=== PATIENT | male | born 1985 | race Caucasian/White ===

== ENCOUNTER 2017-06-07 09:41 | Inpatient (IN) | payer OTHER ==
[2017-06-07 09:47] VITALS: BMI 26.1
--- NOTE | 2017-06-07 10:12 | ED PDOC ---
HPI: Male Pain Time Seen by Provider: 06/07/17 09:48 Chief Complaint (Nursing): Male Genitourinary Additional Complaint(s): Patient is a 32 y/o M with hx of diverticulitis with admission in 2016 for diverticulitis with abscess, managed conservatively with IV antibiotics, presenting with suprapubic pain and dysuria. He reports that the suprapubic pain is worse with straining and urinating. Denies hesistancy or difficulty urinating. Denies back pain or fever. Denies scrotal swelling or penile discharge. Past Medical History Vital Signs: Last Vital Signs Temp 98 F 06/07/17 09:45 Pulse 93 H 06/07/17 09:45 Resp BP 148/74 06/07/17 09:45 Pulse Ox 99 06/07/17 09:45 - Medical History PMH: Asthma Denies: HIV, Chronic Kidney Disease - Family History Family History: States: No Known Family Hx - Home Medications Home Medications: Ambulatory Orders Medication Instructions Recorded No Known Home Med 06/07/17 - Allergies Allergies/Adverse Reactions: Allergies Allergy/AdvReac Type Severity Reaction Status Date / Time No Known Allergies Allergy Verified 08/27/14 17:38 Review of Systems Constitutional: Negative for: Fever, Chills Respiratory: Negative for: Cough, Shortness of Breath Gastrointestinal: Positive for: Abdominal Pain (suprapubic). Negative for: Nausea, Vomiting, Diarrhea, Constipation Genitourinary Male: Positive for: Dysuria. Negative for: Frequency, Incontinence, Hematuria, Penile Discharge, Scrotal Pain, Penile Pain Musculoskeletal: Negative for: Neck Pain Neurological: Negative for: Weakness, Numbness Physical Exam - Reviewed Nursing Documentation Reviewed: Yes Vital Signs Reviewed: Yes - Physical Exam Appears: Positive for: Well, Non-toxic Cardiovascular/Chest: Positive for: Regular Rate, Rhythm Respiratory: Positive for: Normal Breath Sounds Gastrointestinal/Abdominal: Positive for: Soft, Tenderness (scant suprapubic). Negative for: Mass, Distended Male Genital Exam: Negative for: inguinal tenderness, scrotum tenderness (R), scrotum tenderness (L), testicular tenderness (R), testicular tenderness (L), urethral discharge Back: Positive for: Normal Inspection. Negative for: L CVA Tenderness, R CVA Tenderness Extremity: Positive for: Normal ROM - Laboratory Results Result Diagrams: 06/07/17 10:46 06/07/17 10:46 - ECG O2 Sat by Pulse Oximetry: 99 Medical Decision Making Medical Decision Making: UA negative for blood or infection. CT ordered to evaluate abdominal pain further. 12:09 Abd/pelvis CT FINDINGS: LOWER THORAX: Trace bilateral basilar dependent atelectasis identified with a small hiatal hernia also noted. LIVER: Diminished attenuation is appreciated throughout the liver once again reflecting diffuse fatty infiltration but no discrete interval mass is identified. GALLBLADDER AND BILE DUCTS: Unremarkable. PANCREAS: Unremarkable. No gross lesion or ductal dilatation. SPLEEN: Unremarkable. ADRENALS: Unremarkable. No mass. KIDNEYS AND URETERS: Unremarkable. No hydronephrosis. No solid mass. VASCULATURE: Unremarkable. No aortic aneurysm. BOWEL: Prominent thickening of the mid sigmoid colon is again appreciated in the similar segment previously demonstrated is being inflamed from diverticulitis apparently. Local pericolic reaction appears prominent, particularly in the anti mesenteric border laterally with phlegmon or early fluid collection developing. A definite abscess is not completely excluded but is not ruled in either. No free intrarenal gas identified this time. Distal sigmoid colon appears normal in thickness. A few diverticular again seen at the descending colon once again which are noninflamed with remaining large bowel tim for moderate retained fecal material. No bowel obstruction pattern is evident including small bowel. Small bowel is limited evaluation to lack of oral contrast material. APPENDIX: Normal appendix. PERITONEUM: Unremarkable. No free fluid. No free air. LYMPH NODES: Unremarkable. No enlarged lymph nodes. BLADDER: Unremarkable. REPRODUCTIVE: Unremarkable. BONES: No acute fracture. OTHER FINDINGS: None. IMPRESSION: 1. Findings likely reflect recurrent diverticulitis at the mid sigmoid colon with phlegmon or early abscess developing at the anti mesenteric margin at the affected segment. No free intrarenal gas identified this time. 2. Recurrent or chronic fatty liver again evident. 3. Lesser additional details as discussed above. 12:16 --Spoke to resident under Dr. Juventino Cordoba MD and consult to attending placed --Admit to hospital routine: Inpatient in Med/Surg for diverticulitis with fluid collection under the care of Resident Dr. Ifrah Cohen MD 12:17PM WBC elevated. Patient afebrile. IVF infusing. Zosyn and blood cultures started. Accepted by Monique Cohen hospitalist. Disposition - Clinical Impression Clinical Impression: Diverticulitis of intestine with abscess - Disposition Disposition Time: 12:19 Condition: FAIR Forms: [employer] (Chinese)
[2017-06-07 10:49] LABS: BASO % 0.4 % (0.0-2.0); EOS # 0.2 K/uL (0.0-0.7); EOS % 1.9 % (0.0-4.0); HEMATOCRIT 39.3 % (35.0-51.0); LYMPH # 1.7 K/uL (1.0-4.3); LYMPH % 15.5 % (20.0-40.0); MEAN CELL VOLUME 85.9 fl (80.0-94.0); MEAN CORPUSCULAR HEMOGLOBIN 29.4 pg (27.0-31.0); MEAN CORPUSCULAR HGB CONC 34.2 g/dL (33.0-37.0); MONO # 1.1 K/uL (0.0-0.8); MONO % 9.7 % (0.0-10.0); NEUT % 72.5 % (50.0-75.0); WHITE BLOOD COUNT 11.1 K/uL (4.8-10.8)
[2017-06-07 10:51] LABS: URINE BILIRUBIN NEGATIVE (NEGATIVE); URINE BLOOD NEGATIVE (NEGATIVE); URINE COLOR YELLOW (YELLOW); URINE GLUCOSE (UA) NEG (Normal); URINE KETONE NEGATIVE (NEGATIVE); URINE LEUKOCYTE ESTERASE NEG Leu/uL (Negative); URINE PROTEIN 30 mg/dL (NEGATIVE); URINE UROBILINOGEN 0.2-1.0 mg/dL (0.2-1.0); WBC URINE 1 /hpf (0-5)
[2017-06-07 11:05] LABS: ALB/GLOB RATIO 1.2 (1.0-2.1); ALKALINE PHOSPHATASE 75 U/L (38-126); ALT/SGPT 84 U/L (21-72); AST/SGOT 47 U/L (17-59); BILIRUBIN,TOTAL 0.6 mg/dl (0.2-1.3); BLOOD UREA NITROGEN 9 mg/dl (9-20); CALCIUM 9.2 mg/dL (8.4-10.2); CARBON DIOXIDE 24 mmol/L (22-30); CHLORIDE 105 mmol/L (98-107); GFR AFRICAN-AMERICAN > 60; GLUCOSE,RANDOM 111 mg/dL (75-110); POTASSIUM 3.9 MMOL/L (3.6-5.0); SODIUM 140 mmol/l (132-148); TOTAL PROTEIN 7.9 G/DL (6.3-8.2)
[2017-06-07] MEDS ORDERED: Iohexol 300 100 ML IJ ONE (11:10)
[2017-06-07] MEDS ORDERED: Sodium Chloride 0.9% 50 ML IV ONE (11:11)
[2017-06-07] MEDS ORDERED: metroNIDAZOLE 500mg/100ml NS 100 ML IVPB STA (12:11)
[2017-06-07] MEDS ORDERED: Ciprofloxacin 400mg/200ml D5W 400 MG/200 ML BAG IVPB STA (12:11)
--- NOTE | 2017-06-07 12:11 | CT ---
PROCEDURE: CT Abdomen and Pelvis with contrast HISTORY: suprapubic pain COMPARISON: None. TECHNIQUE: Contrast dose: Omnipaque 300, 100 cc. No oral contrast administered as requested. Radiation dose: Total exam DLP = 607 mGy-cm. This CT exam was performed using one or more of the following dose reduction techniques: Automated exposure control, adjustment of the mA and/or kV according to patient size, and/or use of iterative reconstruction technique. FINDINGS: LOWER THORAX: Trace bilateral basilar dependent atelectasis identified with a small hiatal hernia also noted. LIVER: Diminished attenuation is appreciated throughout the liver once again reflecting diffuse fatty infiltration but no discrete interval mass is identified. GALLBLADDER AND BILE DUCTS: Unremarkable. PANCREAS: Unremarkable. No gross lesion or ductal dilatation. SPLEEN: Unremarkable. ADRENALS: Unremarkable. No mass. KIDNEYS AND URETERS: Unremarkable. No hydronephrosis. No solid mass. VASCULATURE: Unremarkable. No aortic aneurysm. BOWEL: Prominent thickening of the mid sigmoid colon is again appreciated in the similar segment previously demonstrated is being inflamed from diverticulitis apparently. Local pericolic reaction appears prominent, particularly in the anti mesenteric border laterally with phlegmon or early fluid collection developing. A definite abscess is not completely excluded but is not ruled in either. No free intrarenal gas identified this time. Distal sigmoid colon appears normal in thickness. A few diverticular again seen at the descending colon once again which are noninflamed with remaining large bowel tim for moderate retained fecal material. No bowel obstruction pattern is evident including small bowel. Small bowel is limited evaluation to lack of oral contrast material. APPENDIX: Normal appendix. PERITONEUM: Unremarkable. No free fluid. No free air. LYMPH NODES: Unremarkable. No enlarged lymph nodes. BLADDER: Unremarkable. REPRODUCTIVE: Unremarkable. BONES: No acute fracture. OTHER FINDINGS: None. IMPRESSION: 1. Findings likely reflect recurrent diverticulitis at the mid sigmoid colon with phlegmon or early abscess developing at the anti mesenteric margin at the affected segment. No free intrarenal gas identified this time. 2. Recurrent or chronic fatty liver again evident. 3. Lesser additional details as discussed above.
[2017-06-07] MEDS ORDERED: Piperacillin/Tazobact 3.375 GM in Sodium Chloride 0.9% 100 ML IVPB STA (12:17)
[2017-06-07] MEDS ORDERED: Piperacillin/Tazobact 3.375 gm Inj IVPB ONE (12:18)
[2017-06-07] MEDS ORDERED: Sodium Chloride 0.9% 1,000 ML IV SCH (12:30)
--- NOTE | 2017-06-07 13:02 | CP.PCM.CON ---
<Gasper Johnson - Last Filed: 06/07/17 12:56> History of Present Illness - History of Present Illness History of Present Illness: Surgery: Dr. Cordoba CC: Abd pain HPI: 32M w. PMH of diverticulitis in March of 2016 which resolved w. conservative management. Pt did not have follow up colonoscopy. Pt presents to ED w. abd pain which began Wednesday night. Pain is localized to the LLQ and is described as a sharp pulling pain. Pain progressively worsened and is now constant. Tylenol provides slight relief. Pain is exacerbated w. activity and urination. Pt states that the pain is similar to prior episode of diverticulitis. Pt states that he had a low grade fever 100.4 the last 2 days. He denies chills. No SPEARS/blurred vision, no CP/palpitations, no SOB/cough. Pt denies N/V. He did have loose stools yesterday, non-bloody. Pt does report dysuria, his urine is darker than usual, no foul odor, no hematuria. PMH: diverticulosis PSH: none Meds: none NKDA Social: Social ETOH, occasional cigarette, no drugs Fhx: non-contributory Review of Systems - Review of Systems All systems: reviewed and no additional remarkable complaints except (HPI) Past Patient History - Past Medical History & Family History Past Medical History?: Yes - Past Social History Smoking Status: Never Smoked - CARDIAC Hx Cardiac Disorders: No - PULMONARY Hx Respiratory Disorders: No - NEUROLOGICAL Hx Neurological Disorder: No - HEENT Hx HEENT Problems: No - RENAL Hx Chronic Kidney Disease: No - ENDOCRINE/METABOLIC Hx Endocrine Disorders: No - HEMATOLOGICAL/ONCOLOGICAL Hx Blood Disorders: No - INTEGUMENTARY Hx Dermatological Problems: No - MUSCULOSKELETAL/RHEUMATOLOGICAL Hx Musculoskeletal Disorders: No - GASTROINTESTINAL Hx Gastrointestinal Disorders: No - GENITOURINARY/GYNECOLOGICAL Hx Genitourinary Disorders: No - PSYCHIATRIC Hx Psychophysiologic Disorder: No - SURGICAL HISTORY Hx Surgeries: No - ANESTHESIA Hx Anesthesia: No Meds Allergies/Adverse Reactions: Allergies Allergy/AdvReac Type Severity Reaction Status Date / Time No Known Allergies Allergy Verified 08/27/14 17:38 - Medications Medications: Current Medications Hydromorphone HCl (Dilaudid) 0.5 mg IVP Q4 PRN PRN Reason: Pain, severe (8-10) Piperacillin Sod/Tazobactam (Sod 3.375 gm/ Sodium Chloride) 100 mls @ 100 mls/ hr IVPB STAT STA Stop: 06/07/17 13:16 Last Admin: 06/07/17 12:25 Dose: 100 mls/hr Sodium Chloride (Sodium Chloride 0.9%) 1,000 mls @ 100 mls/hr IV .Q10H [facility] Stop: 06/08/17 12:30 Last Admin: 06/07/17 12:33 Dose: 100 mls/hr Ondansetron HCl (Zofran Inj) 4 mg IVP Q4 PRN PRN Reason: Nausea/Vomiting Physical Exam - Constitutional Appears: Non-toxic, No Acute Distress - Head Exam Head Exam: ATRAUMATIC, NORMOCEPHALIC - Eye Exam Eye Exam: EOMI. absent: Scleral icterus Pupil Exam: NORMAL ACCOMODATION - ENT Exam ENT Exam: Mucous Membranes Moist, Normal External Ear Exam - Neck Exam Neck exam: Positive for: Full Rom - Respiratory Exam Respiratory Exam: NORMAL BREATHING PATTERN. absent: Accessory Muscle Use, Respiratory Distress - Cardiovascular Exam Cardiovascular Exam: REGULAR RHYTHM - GI/Abdominal Exam GI & Abdominal Exam: Soft, Tenderness (LLQ). absent: Distended, Firm, Guarding , Rebound, Rigid - Extremities Exam Extremities exam: Negative for: calf tenderness, pedal edema - Back Exam Back exam: absent: CVA tenderness (L), CVA tenderness (R) - Neurological Exam Neurological exam: Alert, Oriented x3 - Psychiatric Exam Psychiatric exam: Normal Affect, Normal Mood - Skin Skin Exam: Dry, Normal Color, Warm Results - Vital Signs Recent Vital Signs: Last Vital Signs Temp 98 F 06/07/17 12:44 Pulse 93 H 06/07/17 12:44 Resp BP 148/74 06/07/17 12:44 Pulse Ox 99 06/07/17 12:43 - Labs Result Diagrams: 06/07/17 10:46 06/07/17 10:46 - Imaging and Cardiology CT scan - abdomen Status: Image reviewed by me, Report reviewed by me Assessment & Plan - Assessment and Plan (Free Text) Assessment: 32M w. diverticulitis -NPO -IVF -abx -serial abd exams -will need future colonoscopy -will d.w attending Leeannaitis PGY3 <Juventino Cordoba B - Last Filed: 06/13/17 18:55> Results - Vital Signs Recent Vital Signs: Last Vital Signs Temp 98.1 F 06/10/17 07:24 Pulse 73 06/10/17 07:24 Resp 20 06/10/17 07:24 BP 106/65 06/10/17 07:24 Pulse Ox 99 06/10/17 07:24 - Labs Result Diagrams: 06/10/17 05:05 06/10/17 05:05 Attending/Attestation - Attestation I have personally seen and examined this patient.: Yes I have fully participated in the care of the patient.: Yes I have reviewed all pertinent clinical information: Yes Notes (Text): 06/13/17 18:54 Pt was seen and examined at bedside Agree with above note and assessment Pt with Diverticulitis with abdominal pain LLQ tenderness C/w current mx IV antibiotics Plan d.w pt in detail Risk and benefit explained in detail.
[2017-06-07] MEDS: Sodium Chloride 0.9% 1,000 ML IV SCH ×2 (13:15→23:34)
--- NOTE | 2017-06-07 14:26 | CP.PCM.HP ---
History of Present Illness - History of Present Illness History of Present Illness: Chief complaint: Abdominal pain History of present illness: 32-year-old male with prior admission for diverticulitis approximately one year ago treated with conservative management but without colonoscopy presents after 2 day history of moderate to severe cramping sharp pain in the left lower quadrant initially worsening and now feeling mildly improved. No diarrhea, hematochezia, n/v. In the emergency room patient was found to have a white blood cell count of 11.[address] abdomen and pelvis showed recurrent diverticulitis admitted sigmoid colon with phlegmon or early abscess developing at the antimesenteric margin. Patient vitals he is afebrile 98.1 heart rate of 76 blood pressure 124/82 respiratory rate of 18 and he saturating 100% on room air. Patient was seen by surgery team consultation to Dr. Cordoba. Review of systems per HPI all other systems reviewed and negative by me Past medical history diverticulitis with prior admission with conservative management without colonoscopy Past surgical history none Family history denies Social history just about 2-3 beers after work daily, no tobacco use, no recreational or IV drug use No home medications No known drug allergies Vitals as reviewed 98.1 heart rate 76 blood pressure 124/82 history rate 1800% saturation on room air Vital signs as documented. Gen: WDWN, cooperative, alert HEENT: NCAT, PERRL, EOMI, no erythema, exudates, gross hearing intact, no lesions Neck: Soft, supple, no lymphadenopathy, no JVD Heart: +S1S2, RRR, No MRG Lung: CTAB, No WRR Abd: soft, tenderness left lower quadrant, ND, BSx4, no HSM, no masses Ext: warm, well perfused, pedal pulses intact Neuro: AAOx3, Strength equal bilaterally UE/LE Skin: Warm, Dry, no rash Psych: Normal mood, affect with appropriate range Significant laboratory results and as below WBC 11.1 Platelet 125 Negative urinalysis 06/07/17 10:46 06/07/17 10:[address] abdomen and pelvis showing diverticulitis admitted sigmoid colon Assessment and plan 32-year-old male with prior admission for diverticulitis approximately one year ago treated with conservative management but without colonoscopy presents after 2 day history of moderate to severe cramping sharp pain in the left lower quadrant initially worsening and now feeling mildly improved. No diarrhea, hematochezia, n/v. In the emergency room patient was found to have a white blood cell count of 11.[address] abdomen and pelvis showed recurrent diverticulitis admitted sigmoid colon with phlegmon or early abscess developing at the antimesenteric margin. Patient vitals he is afebrile 98.1 heart rate of 76 blood pressure 124/82 respiratory rate of 18 and he saturating 100% on room air. Patient was seen by surgery team consultation to Dr. Cordoba. Diverticulitis Patient initially presented with left lower quadrant pain for 2 days worsening, CT + diverticulitis Afebrile, WBC 11.1 Continue Zosyn IV day 1 NPO Blood and urine cultures pending Pain control Gen. surgery consult with Dr. Cordoba If no surgery planned consider discharging patient on by mouth meds VTE PPx TEDs Present on Admission - Present on Admission Any Indicators Present on Admission: No Past Patient History - Past Medical History & Family History Past Medical History?: Yes - Past Social History Smoking Status: Never Smoked - CARDIAC Hx Cardiac Disorders: No - PULMONARY Hx Respiratory Disorders: No - NEUROLOGICAL Hx Neurological Disorder: No - HEENT Hx HEENT Problems: No - RENAL Hx Chronic Kidney Disease: No - ENDOCRINE/METABOLIC Hx Endocrine Disorders: No - HEMATOLOGICAL/ONCOLOGICAL Hx Blood Disorders: No - INTEGUMENTARY Hx Dermatological Problems: No - MUSCULOSKELETAL/RHEUMATOLOGICAL Hx Musculoskeletal Disorders: No - GASTROINTESTINAL Hx Gastrointestinal Disorders: No - GENITOURINARY/GYNECOLOGICAL Hx Genitourinary Disorders: No - PSYCHIATRIC Hx Psychophysiologic Disorder: No - SURGICAL HISTORY Hx Surgeries: No - ANESTHESIA Hx Anesthesia: No Meds Allergies/Adverse Reactions: Allergies Allergy/AdvReac Type Severity Reaction Status Date / Time No Known Allergies Allergy Verified 08/27/14 17:38 Results - Vital Signs Recent Vital Signs: Last Vital Signs Temp 98.1 F 06/07/17 13:30 Pulse 76 06/07/17 13:30 Resp 18 06/07/17 13:30 BP 124/82 06/07/17 13:30 Pulse Ox 98 06/07/17 13:30 - Labs Result Diagrams: 06/07/17 10:46 06/07/17 10:46
[2017-06-07] MEDS: Piperacillin/Tazobact 3.375 GM in Sodium Chloride 0.9% 100 ML IVPB SCH ×2 (16:48→21:24)
[2017-06-08] MEDS: Piperacillin/Tazobact 3.375 GM in Sodium Chloride 0.9% 100 ML IVPB SCH ×4 (03:49→22:46)
[2017-06-08] MEDS: Sodium Chloride 0.9% 1,000 ML IV SCH (06:38)
[2017-06-08 07:27] LABS: HEMATOCRIT 39.4 % (35.0-51.0); MEAN CELL VOLUME 87.2 fl (80.0-94.0); MEAN CORPUSCULAR HEMOGLOBIN 29.8 pg (27.0-31.0); MEAN CORPUSCULAR HGB CONC 34.1 g/dL (33.0-37.0); RED CELL DISTRIBUTION WIDTH 13.2 % (11.5-14.5); WHITE BLOOD COUNT 10.8 K/uL (4.8-10.8)
[2017-06-08 07:41] LABS: BLOOD UREA NITROGEN 8 mg/dl (9-20); CALCIUM 9.1 mg/dL (8.4-10.2); CARBON DIOXIDE 27 mmol/L (22-30); CHLORIDE 103 mmol/L (98-107); GFR AFRICAN-AMERICAN > 60; GLUCOSE,RANDOM 99 mg/dL (75-110); POTASSIUM 4.1 MMOL/L (3.6-5.0); SODIUM 142 mmol/l (132-148)
--- NOTE | 2017-06-08 08:11 | CP.PCM.PN ---
<Jose RneelGasper melgar - Last Filed: 06/09/17 06:34> Subjective - Date & Time of Evaluation Date of Evaluation: 06/08/17 Time of Evaluation: 08:07 - Subjective Subjective: Surgery: Dr. Cordoba Pt seen and examined. Resting comfortably in bed. Pt states that after FLD last night, pain got slightly worse. Pain is improved now. No F/C. No N/V. Pt had BM last night, normal, non-bloody. Objective - Vital Signs/Intake and Output Vital Signs (last 24 hours): Temp Pulse Resp BP Pulse Ox 98.8 F 80 20 109/66 98 06/08/17 07:55 06/08/17 07:55 06/08/17 07:55 06/08/17 07:55 06/08/17 07:55 - Medications Medications: Current Medications Acetaminophen (Tylenol 325mg Tab) 650 mg PO Q6 PRN PRN Reason: Fever >100.4 F Enoxaparin Sodium (Lovenox) 30 mg SC DAILY [facility] PRN Reason: Protocol Famotidine (Pepcid) 20 mg IVP Q12 [facility] Last Admin: 06/07/17 20:24 Dose: 20 mg Hydromorphone HCl (Dilaudid) 0.5 mg IVP Q4 PRN PRN Reason: Pain, severe (8-10) Last Admin: 06/08/17 06:37 Dose: 0.5 mg Piperacillin Sod/Tazobactam (Sod 3.375 gm/ Sodium Chloride) 100 mls @ 100 mls/ hr IVPB Q6 [facility] Last Admin: 06/08/17 03:49 Dose: 100 mls/hr Sodium Chloride (Sodium Chloride 0.9%) 1,000 mls @ 115 mls/hr IV .Q8H42M [facility] Stop: 06/08/17 12:30 Last Admin: 06/08/17 06:38 Dose: Not Given Ketorolac Tromethamine (Toradol) 30 mg IVP Q6 PRN PRN Reason: Pain, moderate (4-7) Last Admin: 06/07/17 20:22 Dose: 30 mg Ondansetron HCl (Zofran Inj) 4 mg IVP Q4 PRN PRN Reason: Nausea/Vomiting - Labs Labs: 06/08/17 06:30 06/08/17 06:30 - Constitutional Appears: Non-toxic, No Acute Distress - Head Exam Head Exam: ATRAUMATIC, NORMOCEPHALIC - Eye Exam Eye Exam: EOMI - ENT Exam ENT Exam: Mucous Membranes Moist - Neck Exam Neck Exam: Full ROM - Respiratory Exam Respiratory Exam: NORMAL BREATHING PATTERN. absent: Accessory Muscle Use, Respiratory Distress - GI/Abdominal Exam GI & Abdominal Exam: Soft, Tenderness (LLQ), Rebound (mild LLQ). absent: Distended, Firm, Guarding, Rigid - Extremities Exam Extremities Exam: absent: Calf Tenderness, Pedal Edema - Neurological Exam Neurological Exam: Alert, Awake, Oriented x3 - Psychiatric Exam Psychiatric exam: Normal Affect, Normal Mood - Skin Skin Exam: Dry, Normal Color, Warm Assessment and Plan - Assessment and Plan (Free Text) Assessment: 32M w. sigmoid diverticulitis -c/w FLD, if pain worsens, recommend NPO and keep extra day for IV abx, if diet tolerated recommend D/C w. PO abx -serial abd exams -will d/w attending Zemaitis PGY3 <Juventino Cordoba - Last Filed: 06/13/17 19:05> Objective - Vital Signs/Intake and Output Vital Signs (last 24 hours): Temp Pulse Resp BP Pulse Ox 98.1 F 73 20 106/65 99 06/10/17 07:24 06/10/17 07:24 06/10/17 07:24 06/10/17 07:24 06/10/17 07:24 - Labs Labs: 06/10/17 05:05 06/10/17 05:05 Attending/Attestation - Attestation I have personally seen and examined this patient.: Yes I have fully participated in the care of the patient.: Yes I have reviewed all pertinent clinical information, including history, physical exam and plan: Yes Notes (Text): 06/13/17 19:05 Pt was seen and examined at bedside Agree with above note and assessment Pt is improving clinically C/w IV antibiotics Plan d.w pt in detail Risk and benefit explained in detail.
[2017-06-08] MEDS: Enoxaparin 40 mg Syringe SC SCH (12:36)
--- NOTE | 2017-06-08 16:06 | CP.PCM.PN ---
Subjective - Date & Time of Evaluation Date of Evaluation: 06/08/17 Time of Evaluation: 10:30 - Subjective Subjective: Patient seen and examined bedside. Complains of pain to LLQ just above to suprapubic area radiating to left testis. Hemodynamically stable, Tmax 99.8 last 24 hours WBC trended down to 10 K. Passing flatus, had normal bowel movements, tolerated liquid diet. pain controlled with toradol Objective - Vital Signs/Intake and Output Vital Signs (last 24 hours): Temp Pulse Resp BP Pulse Ox 98.8 F 80 20 109/66 98 06/08/17 09:00 06/08/17 09:00 06/08/17 09:00 06/08/17 09:00 06/08/17 09:00 - Medications Medications: Current Medications Acetaminophen (Tylenol 325mg Tab) 650 mg PO Q6 PRN PRN Reason: Fever >100.4 F Enoxaparin Sodium (Lovenox) 40 mg SC DAILY [facility] PRN Reason: Protocol Last Admin: 06/08/17 12:36 Dose: 40 mg Famotidine (Pepcid) 20 mg IVP Q12 [facility] Last Admin: 06/08/17 09:10 Dose: 20 mg Hydromorphone HCl (Dilaudid) 0.5 mg IVP Q4 PRN PRN Reason: Pain, severe (8-10) Last Admin: 06/08/17 10:49 Dose: 0.5 mg Piperacillin Sod/Tazobactam (Sod 3.375 gm/ Sodium Chloride) 100 mls @ 100 mls/ hr IVPB Q6 [facility] Last Admin: 06/08/17 09:10 Dose: 100 mls/hr Ketorolac Tromethamine (Toradol) 30 mg IVP Q6 PRN PRN Reason: Pain, moderate (4-7) Last Admin: 06/07/17 20:22 Dose: 30 mg Ondansetron HCl (Zofran Inj) 4 mg IVP Q4 PRN PRN Reason: Nausea/Vomiting - Labs Labs: 06/08/17 06:30 06/08/17 06:30 - Constitutional Appears: Non-toxic, No Acute Distress - Head Exam Head Exam: ATRAUMATIC, NORMAL INSPECTION, NORMOCEPHALIC - Eye Exam Eye Exam: EOMI, Normal appearance, PERRL Pupil Exam: NORMAL ACCOMODATION - ENT Exam ENT Exam: Mucous Membranes Moist, Normal Exam - Neck Exam Neck Exam: Full ROM, Normal Inspection - Respiratory Exam Respiratory Exam: Clear to Ausculation Bilateral, NORMAL BREATHING PATTERN. absent: Rales, Rhonchi, Wheezes - Cardiovascular Exam Cardiovascular Exam: REGULAR RHYTHM, RRR, +S1, +S2. absent: JVD - GI/Abdominal Exam GI & Abdominal Exam: Soft, Tenderness (left lower quadrant above suprapubic area with palpation ), Normal Bowel Sounds. absent: Distended, Guarding, Hernia , Mass, Rebound - Rectal Exam Rectal Exam: Deferred - Extremities Exam Extremities Exam: Full ROM, Normal Capillary Refill, Normal Inspection. absent : Calf Tenderness, Pedal Edema - Back Exam Back Exam: NORMAL INSPECTION - Neurological Exam Neurological Exam: Alert, Awake, CN II-XII Intact, Oriented x3 - Psychiatric Exam Psychiatric exam: Normal Affect, Normal Mood - Skin Skin Exam: Dry, Intact, Normal Color, Warm Assessment and Plan - Assessment and Plan (Free Text) Assessment: 32-year-old male with prior admission for diverticulitis approximately one year ago treated with conservatively with Flagyl and Cipro presented after 2 day history of moderate to severe cramping sharp pain in the left lower quadrant initially worsening and now feeling mildly improved. No diarrhea, hematochezia, n/v. In the emergency room patient was found to have a white blood cell count of 11.[address] abdomen and pelvis showed recurrent diverticulitis mid sigmoid colon with phlegmon or early abscess developing at the antimesenteric margin. Patient vitals he is afebrile , heart rate of 76 blood pressure 124/82 respiratory rate of 18 and he saturating 100% on room air. Patient was seen by surgery team consultation to Dr. Cordoba. 1.Diverticulitis Patient initially presented with left lower quadrant pain for [address] showed + diverticulitis Afebrile, WBC 10 K Continue Zosyn IV day 2 and start Flagyl IV Continue low fiber / full liquid diet' Pain control Gen. surgery consult with Dr. Cordoba appreciated and case discussed 2. DVt prophylaxis SCD
[2017-06-08] MEDS: metroNIDAZOLE 500mg/100ml NS 100 ML IVPB SCH (18:20)
[2017-06-09] MEDS: metroNIDAZOLE 500mg/100ml NS 100 ML IVPB SCH (01:10)
[2017-06-09] MEDS: Piperacillin/Tazobact 3.375 GM in Sodium Chloride 0.9% 100 ML IVPB SCH ×4 (04:15→21:53)
[2017-06-09] MEDS ORDERED: Oxycodone/Acetaminophen 5/325 mg Tab PO PRN (07:31)
--- NOTE | 2017-06-09 07:35 | CP.PCM.PN ---
<Gasper Johnson - Last Filed: 06/09/17 07:33> Subjective - Date & Time of Evaluation Date of Evaluation: 06/09/17 Time of Evaluation: 07:33 - Subjective Subjective: Surgery: Dr. Cordoba Pt seen and examined. Yesterday diet was advanced to regular. Pt states that this caused an exacerbation in pain. Diet was changed back to FLD. This AM pt states that pain persists, but is improved. Denies F/C. No N/V. Pt states that he did have diarrhea overnight, non-bloody. Objective - Vital Signs/Intake and Output Vital Signs (last 24 hours): Temp Pulse Resp BP Pulse Ox 98.8 F 81 20 104/63 98 06/09/17 00:39 06/09/17 00:39 06/09/17 00:39 06/09/17 00:39 06/09/17 00:39 - Medications Medications: Current Medications Acetaminophen (Tylenol 325mg Tab) 650 mg PO Q6 PRN PRN Reason: Fever >100.4 F Enoxaparin Sodium (Lovenox) 40 mg SC DAILY [facility] PRN Reason: Protocol Last Admin: 06/08/17 12:36 Dose: 40 mg Famotidine (Pepcid) 20 mg IVP Q12 [facility] Last Admin: 06/08/17 23:20 Dose: 20 mg Piperacillin Sod/Tazobactam (Sod 3.375 gm/ Sodium Chloride) 100 mls @ 100 mls/ hr IVPB Q6 [facility] Last Admin: 06/09/17 04:15 Dose: 100 mls/hr Ketorolac Tromethamine (Toradol) 30 mg IVP Q6 PRN PRN Reason: Pain, moderate (4-7) Last Admin: 06/09/17 06:51 Dose: 30 mg Ondansetron HCl (Zofran Inj) 4 mg IVP Q4 PRN PRN Reason: Nausea/Vomiting Oxycodone/Acetaminophen (Percocet 5/325 Mg Tab) 1 tab PO Q4 PRN PRN Reason: Pain, moderate (4-7) Stop: 06/12/17 07:32 - Labs Labs: 06/08/17 06:30 06/08/17 06:30 - Constitutional Appears: Non-toxic, No Acute Distress - Head Exam Head Exam: ATRAUMATIC, NORMOCEPHALIC - Eye Exam Eye Exam: EOMI. absent: Scleral icterus Pupil Exam: PERRL - ENT Exam ENT Exam: Mucous Membranes Moist - Neck Exam Neck Exam: Full ROM - Respiratory Exam Respiratory Exam: NORMAL BREATHING PATTERN. absent: Accessory Muscle Use, Respiratory Distress - GI/Abdominal Exam GI & Abdominal Exam: Soft, Tenderness (LLQ). absent: Distended, Firm, Guarding , Rigid, Rebound - Extremities Exam Extremities Exam: absent: Calf Tenderness, Pedal Edema - Neurological Exam Neurological Exam: Alert, Awake, Oriented x3 - Psychiatric Exam Psychiatric exam: Normal Affect, Normal Mood - Skin Skin Exam: Dry, Normal Color, Warm Assessment and Plan - Assessment and Plan (Free Text) Assessment: 32M w. diverticulitis -FLD, do not advance diet yet -c/w abx -pain control -f/u AM labs -serial abd exams -d/w attending Zemaitis PGY3 <Juventino Cordoba - Last Filed: 06/13/17 19:07> Objective - Vital Signs/Intake and Output Vital Signs (last 24 hours): Temp Pulse Resp BP Pulse Ox 98.1 F 73 20 106/65 99 06/10/17 07:24 06/10/17 07:24 06/10/17 07:24 06/10/17 07:24 06/10/17 07:24 - Labs Labs: 06/10/17 05:05 06/10/17 05:05 Attending/Attestation - Attestation I have personally seen and examined this patient.: Yes I have fully participated in the care of the patient.: Yes I have reviewed all pertinent clinical information, including history, physical exam and plan: Yes Notes (Text): 06/13/17 19:07 Pt was seen and examined at bedside Agree with above note and assessment DC Home with Po antibiotics F.U as out pt
[2017-06-09 07:56] LABS: HEMATOCRIT 36.6 % (35.0-51.0); MEAN CELL VOLUME 86.4 fl (80.0-94.0); MEAN CORPUSCULAR HEMOGLOBIN 29.3 pg (27.0-31.0); MEAN CORPUSCULAR HGB CONC 33.9 g/dL (33.0-37.0); RED CELL DISTRIBUTION WIDTH 12.7 % (11.5-14.5); WHITE BLOOD COUNT 12.7 K/uL (4.8-10.8)
[2017-06-09 08:17] LABS: BLOOD UREA NITROGEN 9 mg/dl (9-20); CALCIUM 9.1 mg/dL (8.4-10.2); CARBON DIOXIDE 26 mmol/L (22-30); CHLORIDE 101 mmol/L (98-107); GFR AFRICAN-AMERICAN > 60; GLUCOSE,RANDOM 105 mg/dL (75-110); POTASSIUM 3.6 MMOL/L (3.6-5.0); SODIUM 140 mmol/l (132-148)
[2017-06-09] MEDS: Enoxaparin 40 mg Syringe SC SCH (08:28)
[2017-06-09] MEDS: Sodium Chloride 0.9% 1,000 ML IV SCH ×3 (09:16→21:51)
--- NOTE | 2017-06-09 10:54 | CP.PCM.PN ---
Subjective - Date & Time of Evaluation Date of Evaluation: 06/09/17 Time of Evaluation: 11:00 - Subjective Subjective: Patient seen and examined bedside. Lying in bed in NAD.States that yesterday had episode of abdominal cramps associated with multiple episodes of diarrhea after eating and with 2 episodes of diarrhea this AM. Feeling better . Hemodynamically stable, Tmax 99.8 , tolerating liquid diet WBC trending up today 12.7 Objective - Vital Signs/Intake and Output Vital Signs (last 24 hours): Temp Pulse Resp BP Pulse Ox 98.4 F 99 H 20 119/72 95 06/09/17 08:33 06/09/17 08:33 06/09/17 08:33 06/09/17 08:33 06/09/17 08:33 - Medications Medications: Current Medications Acetaminophen (Tylenol 325mg Tab) 650 mg PO Q6 PRN PRN Reason: Fever >100.4 F Enoxaparin Sodium (Lovenox) 40 mg SC DAILY [facility] PRN Reason: Protocol Last Admin: 06/09/17 08:28 Dose: 40 mg Famotidine (Pepcid) 20 mg IVP Q12 [facility] Last Admin: 06/09/17 08:29 Dose: 20 mg Piperacillin Sod/Tazobactam (Sod 3.375 gm/ Sodium Chloride) 100 mls @ 100 mls/ hr IVPB Q6 [facility] Last Admin: 06/09/17 09:17 Dose: 100 mls/hr Sodium Chloride (Sodium Chloride 0.9%) 1,000 mls @ 100 mls/hr IV .Q10H [facility] Stop: 06/10/17 08:29 Last Admin: 06/09/17 09:16 Dose: 100 mls/hr Ketorolac Tromethamine (Toradol) 30 mg IVP Q6 PRN PRN Reason: Pain, moderate (4-7) Last Admin: 06/09/17 06:51 Dose: 30 mg Metronidazole (Flagyl) 500 mg PO Q8 [facility] Ondansetron HCl (Zofran Inj) 4 mg IVP Q4 PRN PRN Reason: Nausea/Vomiting Oxycodone/Acetaminophen (Percocet 5/325 Mg Tab) 1 tab PO Q4 PRN PRN Reason: Pain, moderate (4-7) Stop: 06/12/17 07:32 - Labs Labs: 06/09/17 06:35 06/09/17 06:35 - Constitutional Appears: Non-toxic, No Acute Distress - Head Exam Head Exam: ATRAUMATIC, NORMAL INSPECTION, NORMOCEPHALIC - Eye Exam Eye Exam: EOMI, Normal appearance, PERRL Pupil Exam: NORMAL ACCOMODATION - ENT Exam ENT Exam: Mucous Membranes Moist, Normal Exam - Neck Exam Neck Exam: Full ROM, Normal Inspection - Respiratory Exam Respiratory Exam: Clear to Ausculation Bilateral, NORMAL BREATHING PATTERN. absent: Rales, Rhonchi, Wheezes - Cardiovascular Exam Cardiovascular Exam: REGULAR RHYTHM, RRR, +S1, +S2. absent: JVD - GI/Abdominal Exam GI & Abdominal Exam: Soft, Tenderness, Normal Bowel Sounds. absent: Distended, Guarding, Rebound (tenderness in 1 point just above symphisis pubis on th eleft ) - Rectal Exam Rectal Exam: Deferred - Extremities Exam Extremities Exam: Full ROM, Normal Capillary Refill, Normal Inspection. absent : Calf Tenderness, Pedal Edema - Back Exam Back Exam: NORMAL INSPECTION - Neurological Exam Neurological Exam: Alert, Awake, CN II-XII Intact, Oriented x3 - Psychiatric Exam Psychiatric exam: Normal Affect, Normal Mood - Skin Skin Exam: Dry, Intact, Normal Color, Warm Assessment and Plan - Assessment and Plan (Free Text) Assessment: 32-year-old male with prior admission for diverticulitis approximately one year ago treated with conservatively with Flagyl and Cipro presented after 2 day history of moderate to severe cramping sharp pain in the left lower quadrant initially worsening and now feeling mildly improved. No diarrhea, hematochezia, n/v. In the emergency room patient was found to have a white blood cell count of 11.[address] abdomen and pelvis showed recurrent diverticulitis mid sigmoid colon with phlegmon or early abscess developing at the antimesenteric margin. Patient vitals he is afebrile , heart rate of 76 blood pressure 124/82 respiratory rate of 18 and he saturating 100% on room air. Patient was seen by surgery team consultation to Dr. Cordoba. 1.Diverticulitis Patient initially presented with left lower quadrant pain for [address] showed + diverticulitis Afebrile, WBC trended up from 10 K -- 12.7 Continue Zosyn IV day 3 and Flagyl Continue full liquid diet' Pain control Gen. surgery consult with Dr. Cordoba appreciated and case discussed. Continue current management 2. DVt prophylaxis SCD
[2017-06-10 00:11] VITALS: RESP 20; O2SAT 99
[2017-06-10] MEDS: Piperacillin/Tazobact 3.375 GM in Sodium Chloride 0.9% 100 ML IVPB SCH ×2 (03:31→09:35)
[2017-06-10] MEDS: Sodium Chloride 0.9% 1,000 ML IV SCH (04:55)
[2017-06-10 05:53] LABS: HEMATOCRIT 34.9 % (35.0-51.0); MEAN CELL VOLUME 87.3 fl (80.0-94.0); MEAN CORPUSCULAR HEMOGLOBIN 29.6 pg (27.0-31.0); MEAN CORPUSCULAR HGB CONC 33.9 g/dL (33.0-37.0); WHITE BLOOD COUNT 8.1 K/uL (4.8-10.8)
[2017-06-10 06:02] LABS: BLOOD UREA NITROGEN 6 mg/dl (9-20); CALCIUM 9.2 mg/dL (8.4-10.2); CARBON DIOXIDE 28 mmol/L (22-30); CHLORIDE 104 mmol/L (98-107); GFR AFRICAN-AMERICAN > 60; GLUCOSE,RANDOM 98 mg/dL (75-110); POTASSIUM 3.9 MMOL/L (3.6-5.0); SODIUM 141 mmol/l (132-148)
[2017-06-10 07:25] VITALS: BP 106/65; PULSE 73; TEMP 98.1
--- NOTE | 2017-06-10 09:33 | CP.PCM.DIS ---
Provider - Provider Date of Admission: 06/07/17 12:15 Attending physician: Ifrah Cohen DO Time Spent in preparation of Discharge (in minutes): 30 Diagnosis - Discharge Diagnosis (1) Diverticulitis of intestine with abscess Status: Acute Hospital Course - Lab Results Lab Results: Most Recent Lab Values WBC 8.1 K/uL (4.8-10.8) 06/10/17 05:05 RBC 4.00 Mil/uL (4.40-5.90) L 06/10/17 05:05 Hgb 11.8 g/dL (12.0-18.0) L 06/10/17 05:05 Hct 34.9 % (35.0-51.0) L 06/10/17 05:05 MCV 87.3 fl (80.0-94.0) 06/10/17 05:05 MCH 29.6 pg (27.0-31.0) 06/10/17 05:05 MCHC 33.9 g/dL (33.0-37.0) 06/10/17 05:05 RDW 13.0 % (11.5-14.5) 06/10/17 05:05 Plt Count 168 K/uL (130-400) 06/10/17 05:05 MPV 10.0 fl (7.2-11.7) 06/07/17 10:46 Neut % (Auto) 72.5 % (50.0-75.0) 06/07/17 10:46 Lymph % (Auto) 15.5 % (20.0-40.0) L 06/07/17 10:46 [place] % (Auto) 9.7 % (0.0-10.0) 06/07/17 10:46 Eos % (Auto) 1.9 % (0.0-4.0) 06/07/17 10:46 Baso % (Auto) 0.4 % (0.0-2.0) 06/07/17 10:46 Neut # 8.0 K/uL (1.8-7.0) H 06/07/17 10:46 Lymph # 1.7 K/uL (1.0-4.3) 06/07/17 10:46 [place] # 1.1 K/uL (0.0-0.8) H 06/07/17 10:46 Eos # 0.2 K/uL (0.0-0.7) 06/07/17 10:46 Baso # 0.0 K/uL (0.0-0.2) 06/07/17 10:46 Sodium 141 mmol/l (132-148) 06/10/17 05:05 Potassium 3.9 MMOL/L (3.6-5.0) 06/10/17 05:05 Chloride 104 mmol/L (98-107) 06/10/17 05:05 Carbon Dioxide 28 mmol/L (22-30) 06/10/17 05:05 Anion Gap 14 (10-20) 06/10/17 05:05 BUN 6 mg/dl (9-20) L 06/10/17 05:05 Creatinine 0.7 mg/dL (0.8-1.5) L 06/10/17 05:05 Est GFR ( Amer) > 60 06/10/17 05:05 Est GFR (Non-Af Amer) > 60 06/10/17 05:05 Random Glucose 98 mg/dL (75-110) 06/10/17 05:05 Calcium 9.2 mg/dL (8.4-10.2) 06/10/17 05:05 Total Bilirubin 0.6 mg/dl (0.2-1.3) 06/07/17 10:46 AST 47 U/L (17-59) 06/07/17 10:46 ALT 84 U/L (21-72) H D 06/07/17 10:46 Alkaline Phosphatase 75 U/L (38-126) 06/07/17 10:46 Total Protein 7.9 G/DL (6.3-8.2) 06/07/17 10:46 Albumin 4.4 g/dL (3.5-5.0) 06/07/17 10:46 Globulin 3.5 gm/dL (2.2-3.9) 06/07/17 10:46 Albumin/Globulin Ratio 1.2 (1.0-2.1) 06/07/17 10:46 Urine Color Yellow (YELLOW) 06/07/17 10:43 Urine Clarity Slighty-cloudy (Clear) 06/07/17 10:43 Urine pH 6.0 (5.0-8.0) 06/07/17 10:43 Ur Specific [place] 1.027 (1.003-1.030) 06/07/17 10:43 Urine Protein 30 mg/dL (NEGATIVE) 06/07/17 10:43 Urine Glucose (UA) Neg mg/dL (Normal) 06/07/17 10:43 Urine Ketones Negative mg/dL (NEGATIVE) 06/07/17 10:43 Urine Blood Negative (NEGATIVE) 06/07/17 10:43 Urine Nitrate Negative (NEGATIVE) 06/07/17 10:43 Urine Bilirubin Negative (NEGATIVE) 06/07/17 10:43 Urine Urobilinogen 0.2-1.0 mg/dL (0.2-1.0) 06/07/17 10:43 Ur Leukocyte Esterase Neg [place]/uL (Negative) 06/07/17 10:43 Urine Microscopic WBC 1 /hpf (0-5) 06/07/17 10:43 Ur Squamous Epith Cells < 1 /hpf (0-5) 06/07/17 10:43 C.trachomatis RNA (TMA) Not detected (Not Detected) 06/07/17 11:23 N.gonorrhoeae RNA (TMA) Not detected (Not Detected) 06/07/17 11:23 - Hospital Course Hospital Course: 32-year-old male with prior admission for diverticulitis approximately one year ago treated with conservatively with Flagyl and Cipro presented after 2 day history of moderate to severe cramping sharp pain in the left lower quadrant initially worsening and now feeling mildly improved. No diarrhea, hematochezia, n/v. In the emergency room patient was found to have a white blood cell count of 11.[address] abdomen and pelvis showed recurrent diverticulitis mid sigmoid colon with phlegmon or early abscess developing at the antimesenteric margin. Patient vitals he is afebrile , heart rate of 76 blood pressure 124/82 respiratory rate of 18 and he saturating 100% on room air. Patient was seen by surgery team consultation to Dr. Cordoba. Discussed [facility], [place] for discharge today with follow up as outpatient with Dr. Cordoba. Will continue 7 days of cipro flagyl. 1.Diverticulitis Patient initially presented with left lower quadrant pain for [address] showed + diverticulitis Afebrile, WBC trended up from 10 K -- 12.7 NOW RESOLVED Continue Zosyn IV day 3 and Flagyl Continue full liquid diet' Pain control Gen. surgery consult with Dr. Cordoba appreciated and case discussed. STABLE FOR DISCHARGE HOME WITH OUTPATIENT FOLLOW UP AND OTC PAIN MEDS PER SURGERY 2. DVt prophylaxis Discharge Exam - Head Exam Head Exam: ATRAUMATIC, NORMAL INSPECTION, NORMOCEPHALIC - Eye Exam Eye Exam: EOMI, Normal appearance, PERRL Pupil Exam: NORMAL ACCOMODATION - ENT Exam ENT Exam: Mucous Membranes Moist, Normal Oropharynx - Neck Exam Neck exam: Full Rom, Normal Inspection - Respiratory Exam Respiratory Exam: Clear to PA & Lateral, NORMAL BREATHING PATTERN - Cardiovascular Exam Cardiovascular Exam: RRR, +S1, +S2 - GI/Abdominal Exam GI & Abdominal Exam: Normal Bowel Sounds, Soft, Unremarkable. absent: Organomegaly, Pulsatile Mass, Tenderness - Extremities Exam Extremities exam: normal capillary refill, pedal pulses present - Back Exam Back exam: absent: CVA tenderness (L), CVA tenderness (R) - Neurological Exam Neurological exam: Alert, CN II-XII Intact, Normal Gait, Oriented x3 - Psychiatric Exam Psychiatric exam: Normal Affect, Normal Mood - Skin Skin Exam: Dry, Normal Color, Warm Discharge Plan - Discharge Medications Prescriptions: Ciprofloxacin [Cipro] 500 mg PO BID #20 tab Metronidazole [Flagyl] 500 mg PO TID #30 tab metroNIDAZOLE [Flagyl] 500 mg PO Q8 #30 tab oxyCODONE/Acetaminophen [Percocet 5/325 mg Tab] 1 ea PO Q4 PRN #30 tab PRN Reason: Pain, Severe (8-10) - Follow Up Plan Condition: FAIR Disposition: HOME/ ROUTINE Instructions: Diverticulitis (DC), Diverticulitis Diet (DC) Additional Instructions: follow up with PCP follow up with Dr. Cordoba as outpatient CIPRO AND FLAGYL FOR 10 DAYS return to ER if condition worsens
[2017-06-10] MEDS: Enoxaparin 40 mg Syringe SC SCH (09:34)
--- NOTE | 2017-06-10 11:27 | CP.PCM.PN ---
<Faustino Cortez - Last Filed: 06/10/17 15:01> Subjective - Date & Time of Evaluation Date of Evaluation: 06/10/17 Time of Evaluation: 11:27 - Subjective Subjective: General Surgery Progress Note for Dr. Cordoba Patient seen and examined at bedside this morning. No acute event overnight. Patient lying in bed comfortably. Patient states abdominal pain has improved. He has not been taking pain medication. He is tolerating soft diet. He had BMs last night and this morning. Ambulating without difficulty. Denies fever/chills , cp, sob, abd pain, n/v/d. Objective - Vital Signs/Intake and Output Vital Signs (last 24 hours): Temp Pulse Resp BP Pulse Ox 98.1 F 73 20 106/65 99 06/10/17 07:24 06/10/17 07:24 06/10/17 07:24 06/10/17 07:24 06/10/17 07:24 - Medications Medications: Current Medications Acetaminophen (Tylenol 325mg Tab) 650 mg PO Q6 PRN PRN Reason: Fever >100.4 F Enoxaparin Sodium (Lovenox) 40 mg SC DAILY [facility] PRN Reason: Protocol Last Admin: 06/10/17 09:34 Dose: 40 mg Famotidine (Pepcid) 20 mg IVP Q12 [facility] Last Admin: 06/10/17 09:34 Dose: 20 mg Piperacillin Sod/Tazobactam (Sod 3.375 gm/ Sodium Chloride) 100 mls @ 100 mls/ hr IVPB Q6 [facility] Last Admin: 06/10/17 09:35 Dose: 100 mls/hr Ketorolac Tromethamine (Toradol) 30 mg IVP Q6 [facility] PRN Reason: Pain, moderate (4-7) Last Admin: 06/09/17 06:51 Dose: 30 mg Metronidazole (Flagyl) 500 mg PO Q8 [facility] Last Admin: 06/10/17 09:34 Dose: 500 mg Ondansetron HCl (Zofran Inj) 4 mg IVP Q4 PRN PRN Reason: Nausea/Vomiting Oxycodone/Acetaminophen (Percocet 5/325 Mg Tab) 1 tab PO Q4 PRN PRN Reason: Pain, moderate (4-7) Stop: 06/12/17 07:32 - Labs Labs: 06/10/17 05:05 06/10/17 05:05 - Constitutional Appears: No Acute Distress - Head Exam Head Exam: ATRAUMATIC, NORMOCEPHALIC - Eye Exam Eye Exam: Normal appearance - ENT Exam ENT Exam: Mucous Membranes Moist - Respiratory Exam Respiratory Exam: NORMAL BREATHING PATTERN - Cardiovascular Exam Cardiovascular Exam: REGULAR RHYTHM - GI/Abdominal Exam GI & Abdominal Exam: Soft, Tenderness (minimal suprapubic area). absent: Distended, Firm, Guarding, Rigid, Rebound - Extremities Exam Extremities Exam: absent: Calf Tenderness - Neurological Exam Neurological Exam: Alert, Awake, Oriented x3 - Psychiatric Exam Psychiatric exam: Normal Affect, Normal Mood - Skin Skin Exam: Dry, Intact, Normal Color, Warm Assessment and Plan - Assessment and Plan (Free Text) Plan: 32 M with diverticulitis -Soft diet -Oral Antibiotics -Patient follow up as outpatient in 1 week -Patient clear for discharge home from surgical [facility]nadpoint -Will DIOGO Cortez PGY1 <Juventino Cordoba - Last Filed: 06/13/17 19:09> Objective - Vital Signs/Intake and Output Vital Signs (last 24 hours): Temp Pulse Resp BP Pulse Ox 98.1 F 73 20 106/65 99 06/10/17 07:24 06/10/17 07:24 06/10/17 07:24 06/10/17 07:24 06/10/17 07:24 - Labs Labs: 06/10/17 05:05 06/10/17 05:05 Attending/Attestation - Attestation I have personally seen and examined this patient.: Yes I have fully participated in the care of the patient.: Yes I have reviewed all pertinent clinical information, including history, physical exam and plan: Yes Notes (Text): 06/13/17 19:09 Pt was seen and examined at bedside Agree with above note and assessment
== END 2017-06-10 11:48 | disposition home or self-care (01) | DRG 182 ==
LOC: H.ER 09:41 → H.ERHOLD 12:15 → H.MEDSURG1 13:36
PROVIDERS: ADMIT Student in an Organized Health Care Education/Training Program; ATTEND Student in an Organized Health Care Education/Training Program
DX: K57.20 Diverticulitis of large intestine with perforation and abscess without bleeding (principal); J45.909 Unspecified asthma, uncomplicated; R19.7 Diarrhea, unspecified